=== PATIENT | male | born 1945 ===

== ENCOUNTER 2022-08-05 09:50 | Inpatient (IN) | payer OTHER ==
[2022-08-05] MEDS ORDERED: SODIUM CHLORIDE 0.9% 500 ML INFUS.BAG IV ONE (11:43)
[2022-08-05] MEDS ORDERED: ONDANSETRON 4 MG/2 ML VIAL IVPUSH ONE (11:43)
[2022-08-05] MEDS ORDERED: MECLIZINE HCL 25 MG TABLET (FP) PO ONE ×2 (11:43→13:45)
[2022-08-05] MEDS ORDERED: ONDANSETRON 4 MG/2 ML VIAL ONE (11:57)
[2022-08-05] MEDS ORDERED: MECLIZINE HCL 25 MG TABLET (FP) ONE ×2 (11:57→14:09)
[2022-08-05 12:37] LABS: BASO % 0.3 % (0-2.0); EOS % 0.5 % (0-4.5); HEMATOCRIT 35.6 % (35.4-49); HEMOGLOBIN 11.9 GM/dL (11.7-16.9); LYMPH % 8.8 % (8-40); MCH 28.5 pg (25.7-33.7); MCHC 33.3 g/dl (32.0-35.9); MEAN CELL VOLUME 85.7 fl (80-96); MEAN PLT VOLUME 9.5 fl (7.5-11.1); MONO % 8.2 % (3.8-10.2); NEUT % 82.2 % (42.8-82.8); PLATELET COUNT 210 10^3/uL (134-434); RBC 4.16 M/mm3 (4.00-5.60); RDW 16.4 % (11.9-15.9); WHITE BLOOD COUNT 10.4 K/mm3 (4.0-10.0)
[2022-08-05] MEDS ORDERED: traMADol HCL 50 MG TABLET ONE (12:38)
[2022-08-05] MEDS ORDERED: traMADol HCL 50 MG TABLET PO ONE (12:38)
[2022-08-05 12:44] LABS: INR 1.83 (0.83-1.09); PROTHROMBIN TIME (PATIENT) 21.1 SEC (9.7-13.0)
[2022-08-05 12:46] LABS: ACTIVATED PTT 38.6 SECONDS (25.2-36.5)
[2022-08-05 13:00] LABS: BLOOD UREA NITROGEN 36.9 mg/dL (7-18); CALCIUM 7.2 mg/dL (8.5-10.1)
[2022-08-05 13:01] LABS: ALBUMIN 3.1 g/dl (3.4-5.0)
[2022-08-05 13:04] LABS: CREATININE 2.4 mg/dL (0.55-1.3)
[2022-08-05 13:05] LABS: BILIRUBIN,TOTAL 0.7 mg/dL (0.2-1); TOT PROT 6.9 g/dl (6.4-8.2)
[2022-08-05] MEDS ORDERED: PROCHLORPERAZINE INJECTION 10 MG/2 ML VIAL IVPB ONE (14:40)
[2022-08-05] MEDS ORDERED: PROCHLORPERAZINE INJECTION 10 MG/2 ML VIAL ONE (14:47)
[2022-08-05] MEDS ORDERED: METOCLOPRAMIDE HCL INJECTION 10 MG/2 ML VIAL IVPUSH ONE (15:21)
[2022-08-05] MEDS ORDERED: morphine CARPU-JECT 4 MG/1 ML DISP.SYRIN IVPUSH ONE (16:30)
[2022-08-05] MEDS ORDERED: METOCLOPRAMIDE HCL INJECTION 10 MG/2 ML VIAL ONE (16:35)
[2022-08-05 17:23] LABS: URINE APPEARANCE CLEAR; URINE BILIRUBIN NEGATIVE (NEGATIVE); URINE COLOR YELLOW; URINE GLUCOSE (UA) NEGATIVE (NEGATIVE); URINE KETONE NEGATIVE (NEGATIVE); URINE LEUK ESTERASE NEGATIVE (NEGATIVE); URINE NITRITE NEGATIVE (NEGATIVE); URINE PROTEIN NEGATIVE (NEGATIVE)
[2022-08-05 18:46] VITALS: BMI 27.1
[2022-08-05] MEDS: traMADol HCL 50 MG TABLET PO PRN (19:41)
[2022-08-05] MEDS ORDERED: MIRTAZAPINE 15 MG TABLET (FP) ONE (21:25)
[2022-08-05] MEDS: MELATONIN 1 MG, MELATONIN 5 MG PO SCH (21:33)
[2022-08-05] MEDS: APIXABAN 5 MG TABLET PO SCH (21:34)
[2022-08-05] MEDS: ATORVASTATIN CA 80 MG TABLET (FP) PO SCH (21:34)
[2022-08-05] MEDS: DOCUSATE SODIUM 100 MG CAPSULE (FP) PO SCH (21:39)
[2022-08-05] MEDS: MIRTAZAPINE 15 MG TABLET (FP) PO SCH (21:39)
[2022-08-05] MEDS: ONDANSETRON 4 MG TABLET PO SCH (21:41)
[2022-08-05] MEDS: CALCIUM CARBONATE 650 MG TABLET PO SCH (21:52)
[2022-08-05] MEDS ORDERED: CALCIUM CARBONATE 500 MG PO SCH (22:00)
[2022-08-05] MEDS ORDERED: PATIENT'S OWN MEDICATION (NON-FORMULARY) (Melatonin [Melatonin] 5 MG Tablet) PO SCH (22:00)
[2022-08-05] MEDS ORDERED: MIRTAZAPINE 30 MG TABLET PO SCH (22:00)
[2022-08-06] MEDS: ONDANSETRON 4 MG TABLET PO SCH ×3 (05:47→22:27)
[2022-08-06 07:44] LABS: BASO % 0.5 % (0-2.0); EOS % 3.3 % (0-4.5); HEMATOCRIT 35.9 % (35.4-49); HEMOGLOBIN 11.8 GM/dL (11.7-16.9); LYMPH % 21.9 % (8-40); MCH 28.3 pg (25.7-33.7); MCHC 32.9 g/dl (32.0-35.9); MEAN CELL VOLUME 86.2 fl (80-96); MEAN PLT VOLUME 9.4 fl (7.5-11.1); MONO % 11.2 % (3.8-10.2); NEUT % 63.1 % (42.8-82.8); PLATELET COUNT 189 10^3/uL (134-434); RBC 4.17 M/mm3 (4.00-5.60); RDW 16.6 % (11.9-15.9); WHITE BLOOD COUNT 7.8 K/mm3 (4.0-10.0)
[2022-08-06 08:11] LABS: CALCIUM 7.4 mg/dL (8.5-10.1)
[2022-08-06 08:14] LABS: BLOOD UREA NITROGEN 39.5 mg/dL (7-18); CREATININE 2.4 mg/dL (0.55-1.3)
[2022-08-06] MEDS: traMADol HCL 50 MG TABLET PO PRN (08:24)
[2022-08-06] MEDS: VALSARTAN 40 MG TABLET PO SCH (09:53)
[2022-08-06] MEDS: EZETIMIBE 10 MG TABLET (FP) PO SCH (09:54)
[2022-08-06] MEDS: DOCUSATE SODIUM 100 MG CAPSULE (FP) PO SCH ×2 (09:54→22:27)
[2022-08-06] MEDS: amLODIPine BESYLATE 5 MG TABLET (FP) PO SCH (09:58)
[2022-08-06] MEDS: APIXABAN 5 MG TABLET PO SCH ×2 (10:00→22:28)
[2022-08-06] MEDS: AMIODARONE HCL 200 MG TABLET PO SCH (10:00)
[2022-08-06] MEDS: ASPIRIN 81 MG CHEWABLE TABLETS PO SCH (10:00)
[2022-08-06] MEDS: ESCITALOPRAM OXALATE 10 MG TABLET PO SCH (10:01)
[2022-08-06] MEDS: CALCIUM CARBONATE 650 MG TABLET PO SCH ×2 (10:05→22:56)
[2022-08-06] MEDS: TOPIRAMATE 25 MG TABLET PO SCH ×2 (12:41→22:56)
[2022-08-06] MEDS: guaiFENesin 200 MG/10 ML 10 ML UNIT-DOSE CUPS PO PRN ×2 (13:15→20:26)
[2022-08-06 13:58] LABS: MAGNESIUM 2.6 mg/dL (1.8-2.4)
[2022-08-06 14:01] LABS: PHOSPHOROUS 5.1 mg/dL (2.5-4.9)
[2022-08-06] MEDS: MIRTAZAPINE 15 MG TABLET (FP) PO SCH (22:27)
[2022-08-06] MEDS: MELATONIN 1 MG, MELATONIN 5 MG PO SCH (22:27)
[2022-08-06] MEDS: ATORVASTATIN CA 80 MG TABLET (FP) PO SCH (22:27)
[2022-08-07] MEDS: ONDANSETRON 4 MG TABLET PO SCH ×2 (06:28→13:05)
[2022-08-07 08:19] LABS: BASO % 0.7 % (0-2.0); EOS % 4.8 % (0-4.5); HEMATOCRIT 38.7 % (35.4-49); HEMOGLOBIN 12.3 GM/dL (11.7-16.9); LYMPH % 21.5 % (8-40); MCH 27.7 pg (25.7-33.7); MCHC 31.8 g/dl (32.0-35.9); MEAN CELL VOLUME 87.1 fl (80-96); MEAN PLT VOLUME 10.3 fl (7.5-11.1); MONO % 14.4 % (3.8-10.2); NEUT % 58.6 % (42.8-82.8); PLATELET COUNT 184 10^3/uL (134-434); RBC 4.45 M/mm3 (4.00-5.60); RDW 16.6 % (11.9-15.9)
[2022-08-07 08:31] LABS: ALBUMIN 3.1 g/dl (3.4-5.0); BLOOD UREA NITROGEN 36.1 mg/dL (7-18); CALCIUM 7.7 mg/dL (8.5-10.1); MAGNESIUM 2.3 mg/dL (1.8-2.4)
[2022-08-07 08:34] LABS: CREATININE 2.2 mg/dL (0.55-1.3); PHOSPHOROUS 4.9 mg/dL (2.5-4.9)
[2022-08-07 08:36] LABS: BILIRUBIN,TOTAL 0.6 mg/dL (0.2-1)
[2022-08-07] MEDS ORDERED: POLYETHYLENE GLYCOL (HEALTHYLAX) 3350 17 GM PACKET PO ONE (11:15)
[2022-08-07] MEDS: AMIODARONE HCL 200 MG TABLET PO SCH (11:22)
[2022-08-07] MEDS: EZETIMIBE 10 MG TABLET (FP) PO SCH (11:22)
[2022-08-07] MEDS: ESCITALOPRAM OXALATE 10 MG TABLET PO SCH (11:22)
[2022-08-07] MEDS: CALCIUM CARBONATE 650 MG TABLET PO SCH (11:22)
[2022-08-07] MEDS: amLODIPine BESYLATE 5 MG TABLET (FP) PO SCH (11:22)
[2022-08-07] MEDS: TOPIRAMATE 25 MG TABLET PO SCH ×2 (11:22→22:08)
[2022-08-07] MEDS: DOCUSATE SODIUM 100 MG CAPSULE (FP) PO SCH ×2 (11:23→22:05)
[2022-08-07] MEDS: VALSARTAN 40 MG TABLET PO SCH (11:23)
[2022-08-07] MEDS: GLYCERIN 1 RECTAL SUPPOSITORY, ADULT RC ONE ×2 (13:05→13:19)
[2022-08-07 13:20] LABS: INR 1.6 (0.83-1.09); PROTHROMBIN TIME (PATIENT) 18.5 SEC (9.7-13.0)
[2022-08-07] MEDS: guaiFENesin 200 MG/10 ML 10 ML UNIT-DOSE CUPS PO PRN (18:13)
[2022-08-07 18:53] LABS: HIV INTERPRETATION NEGATIVE (NEGATIVE)
[2022-08-07] MEDS ORDERED: traMADol HCL 50 MG TABLET PO PRN (19:29)
[2022-08-07] MEDS: MELATONIN 1 MG, MELATONIN 5 MG PO SCH (22:05)
[2022-08-07] MEDS: ATORVASTATIN CA 80 MG TABLET (FP) PO SCH (22:05)
[2022-08-07] MEDS: MIRTAZAPINE 15 MG TABLET (FP) PO SCH (22:05)
[2022-08-08 08:02] LABS: BASO % 0.6 % (0-2.0); EOS % 4.9 % (0-4.5); HEMATOCRIT 39.7 % (35.4-49); LYMPH % 23.3 % (8-40); MCH 28.5 pg (25.7-33.7); MCHC 32.8 g/dl (32.0-35.9); MEAN CELL VOLUME 86.8 fl (80-96); MEAN PLT VOLUME 10.8 fl (7.5-11.1); MONO % 8.1 % (3.8-10.2); NEUT % 63.1 % (42.8-82.8); PLATELET COUNT 208 10^3/uL (134-434); RBC 4.57 M/mm3 (4.00-5.60); RDW 16.3 % (11.9-15.9); WHITE BLOOD COUNT 8.3 K/mm3 (4.0-10.0)
[2022-08-08 08:09] LABS: INR 1.36 (0.83-1.09); PROTHROMBIN TIME (PATIENT) 15.7 SEC (9.7-13.0)
[2022-08-08 08:26] LABS: CALCIUM 7.7 mg/dL (8.5-10.1)
[2022-08-08 08:27] LABS: ALBUMIN 3.2 g/dl (3.4-5.0); BLOOD UREA NITROGEN 34.9 mg/dL (7-18); MAGNESIUM 2.2 mg/dL (1.8-2.4)
[2022-08-08 08:30] LABS: CREATININE 2.2 mg/dL (0.55-1.3); PHOSPHOROUS 4.5 mg/dL (2.5-4.9)
[2022-08-08 08:31] LABS: BILIRUBIN,TOTAL 0.6 mg/dL (0.2-1)
[2022-08-08 08:32] LABS: TOT PROT 7.3 g/dl (6.4-8.2)
[2022-08-08] MEDS ORDERED: HEPARIN NA (PORCINE) 5,000 UNITS/ML 1ML VIAL SQ SCH (10:00)
[2022-08-08] MEDS: amLODIPine BESYLATE 5 MG TABLET (FP) PO SCH (10:04)
[2022-08-08] MEDS: AMIODARONE HCL 200 MG TABLET PO SCH (10:04)
[2022-08-08] MEDS: VALSARTAN 40 MG TABLET PO SCH (10:04)
[2022-08-08] MEDS: ESCITALOPRAM OXALATE 10 MG TABLET PO SCH (10:04)
[2022-08-08] MEDS: EZETIMIBE 10 MG TABLET (FP) PO SCH (10:04)
[2022-08-08] MEDS: TOPIRAMATE 25 MG TABLET PO SCH ×2 (10:06→22:07)
[2022-08-08] MEDS: guaiFENesin 200 MG/10 ML 10 ML UNIT-DOSE CUPS PO PRN ×2 (10:11→18:44)
[2022-08-08] MEDS: DOCUSATE SODIUM 100 MG CAPSULE (FP) PO SCH (22:07)
[2022-08-08] MEDS: MIRTAZAPINE 15 MG TABLET (FP) PO SCH (22:07)
[2022-08-08] MEDS: ATORVASTATIN CA 80 MG TABLET (FP) PO SCH (22:07)
[2022-08-08] MEDS: MELATONIN 1 MG, MELATONIN 5 MG PO SCH (22:07)
[2022-08-09] MEDS: ASPIRIN 81 MG CHEWABLE TABLETS PO SCH (10:12)
[2022-08-09] MEDS: EZETIMIBE 10 MG TABLET (FP) PO SCH (10:12)
[2022-08-09] MEDS: ESCITALOPRAM OXALATE 10 MG TABLET PO SCH (10:12)
[2022-08-09] MEDS: VALSARTAN 40 MG TABLET PO SCH (10:12)
[2022-08-09] MEDS: AMIODARONE HCL 200 MG TABLET PO SCH (10:12)
[2022-08-09] MEDS: amLODIPine BESYLATE 5 MG TABLET (FP) PO SCH (10:12)
[2022-08-09] MEDS: TOPIRAMATE 25 MG TABLET PO SCH ×2 (10:45→23:08)
[2022-08-09] MEDS: APIXABAN 2.5 MG TABLET PO SCH ×2 (12:00→22:17)
[2022-08-09] MEDS: guaiFENesin 200 MG/10 ML 10 ML UNIT-DOSE CUPS PO PRN (18:42)
[2022-08-09] MEDS: MELATONIN 1 MG, MELATONIN 5 MG PO SCH (22:15)
[2022-08-09] MEDS: ATORVASTATIN CA 80 MG TABLET (FP) PO SCH (22:17)
[2022-08-09] MEDS: MIRTAZAPINE 15 MG TABLET (FP) PO SCH (22:18)
[2022-08-09] MEDS: DOCUSATE SODIUM 100 MG CAPSULE (FP) PO SCH (22:20)
[2022-08-10 07:55] LABS: HEMATOCRIT 34.8 % (35.4-49); HEMOGLOBIN 11.3 GM/dL (11.7-16.9); MCH 28.2 pg (25.7-33.7); MCHC 32.5 g/dl (32.0-35.9); MEAN CELL VOLUME 86.7 fl (80-96); MEAN PLT VOLUME 9.9 fl (7.5-11.1); PLATELET COUNT 177 10^3/uL (134-434); RBC 4.02 M/mm3 (4.00-5.60); WHITE BLOOD COUNT 8.3 K/mm3 (4.0-10.0)
[2022-08-10 08:13] LABS: CALCIUM 7.3 mg/dL (8.5-10.1)
[2022-08-10 08:17] LABS: CREATININE 2.3 mg/dL (0.55-1.3)
[2022-08-10] MEDS: AMIODARONE HCL 200 MG TABLET PO SCH (11:20)
[2022-08-10] MEDS: ASPIRIN 81 MG CHEWABLE TABLETS PO SCH (11:20)
[2022-08-10] MEDS: amLODIPine BESYLATE 5 MG TABLET (FP) PO SCH (11:21)
[2022-08-10] MEDS: guaiFENesin 200 MG/10 ML 10 ML UNIT-DOSE CUPS PO PRN (11:21)
[2022-08-10] MEDS: VALSARTAN 40 MG TABLET PO SCH (11:21)
[2022-08-10] MEDS: APIXABAN 2.5 MG TABLET PO SCH (11:21)
[2022-08-10] MEDS: ESCITALOPRAM OXALATE 10 MG TABLET PO SCH (11:21)
[2022-08-10] MEDS: TOPIRAMATE 25 MG TABLET PO SCH (11:21)
[2022-08-10] MEDS: EZETIMIBE 10 MG TABLET (FP) PO SCH (11:21)
[2022-08-10 15:26] VITALS: BP 112/74; PULSE 62; RESP 18; TEMP 98
== END 2022-08-10 16:47 | DRG 103 ==
LOC: JER 09:50 → JERBED 13:39 → J4W 18:33 → OBSVTOIN 08-07 13:45
PROVIDERS: ADMIT Internal Medicine; ATTEND Internal Medicine
DX: R51.9 Headache, unspecified (principal); A53.0 Latent syphilis, unspecified as early or late; N18.9 Chronic kidney disease, unspecified; I48.91 Unspecified atrial fibrillation; R42 Dizziness and giddiness; I12.9 Hypertensive chronic kidney disease with stage 1 through stage 4 chronic kidney disease, or unspecified chronic kidney disease; E78.5 Hyperlipidemia, unspecified; H53.8 Other visual disturbances; K21.9 Gastro-esophageal reflux disease without esophagitis
CPT/HCPCS: 0241U-QW; 36415; 62272; 70450-TC; 70551-TC; 71045-TC-FY; 76775-TC; 80048; 80053; 81003; 82436; 82570; 83735; 84100; 84300; 84484; 85025; 85027; 85610; 85730; 86593; 86780; 87389; 87529; 93005; 93010; 93306-TC; 93880-TC; 97116-GP; 97162-GP; 99285-25; C9803-CS; G0378; U0003; U0005